=== PATIENT | male | born 1965 | race Caucasian/White ===

== ENCOUNTER 2018-12-10 10:00 | Day surgery (SDC) | payer OTHER ==
[2018-12-10] MEDS ORDERED: MIDAZOLAM 2 MG/2 ML VIAL IVP ONE (10:01)
[2018-12-10] MEDS ORDERED: fentaNYL 250 MCG/5 ML VIAL IVP ONE (10:01)
[2018-12-10] MEDS ORDERED: LACTATED RINGERS 1,000 ML IV ONE (10:34)
[2018-12-10 12:54] VITALS: BP 116/70
== END 2018-12-10 10:01 | disposition home or self-care (01) ==
LOC: SDS 10:00
PROVIDERS: ATTEND Internal Medicine Gastroenterology
PROC: 0DJD8ZZ Inspection of Lower Intestinal Tract, Via Natural or Artificial Opening Endoscopic (ICD-10-PCS; principal; 2018-12-10 11:30)
DX: Z12.11 Encounter for screening for malignant neoplasm of colon (principal); J30.9 Allergic rhinitis, unspecified; Z87.891 Personal history of nicotine dependence
CPT/HCPCS: 45378; J3010; J7120

== ENCOUNTER 2023-06-21 08:12 | Outpatient (CLI) | payer OTHER ==
[2023-06-21 12:05] LABS: BASOPHILS % (AUTO) 1.5 %; EOSINOPHILS # (AUTO) 0.2 10^3/uL (0.0-0.7); EOSINOPHILS % (AUTO) 6.8 %; HCT - HEMATOCRIT 45.2 % (42.0-52.0); HGB - HEMOGLOBIN 14.6 g/dL (14.0-18.0); LYMPHOCYTES # (AUTO) 1.2 10^3/uL (1.5-3.5); LYMPHOCYTES % (AUTO) 45.5 %; MEAN CORPUSCULAR HEMOGLOBIN 30.8 pg (27.0-31.0); MEAN CORPUSCULAR HGB CONC 32.3 g/dL (32.0-36.0); MEAN CORPUSCULAR VOLUME 95.4 fL (80.0-94.0); MEAN PLATELET VOLUME 11.6 fL (7.4-11.4); MONOCYTES # (AUTO) 0.3 10^3/uL (0.0-1.0); MONOCYTES % (AUTO) 11.7 %; NEUTROPHILS # (AUTO) 0.9 10^3/uL (1.5-6.6); NEUTROPHILS % (AUTO) 34.5 %; PLT - PLATELET COUNT 153 10^3/uL (130-450); RED BLOOD COUNT 4.74 10^6/uL (4.70-6.10); RED CELL DISTRIBUTION WIDTH 13.6 % (12.0-15.0); WHITE BLOOD COUNT 2.7 x10^3/uL (4.8-10.8)
[2023-06-21 12:08] LABS: SLIDE REVIEW? Indicated
[2023-06-21 12:09] LABS: RBC MORPHOLOGY (MULTIPLE) 1+ ANISOCYTOSIS (NORMAL)
[2023-06-21 12:23] LABS: ALBUMIN 4.5 g/dL (3.2-5.5); ALBUMIN/GLOBULIN RATIO 1.3 (1.0-2.2); ALKALINE PHOSPHATASE 33 IU/L (42-121); ALT ALANINE AMINOTRANSFERASE 30 IU/L (10-60); AST ASPARTATE AMINOTRANSFERASE 27 IU/L (10-42); BUN - BLOOD UREA NITROGEN 20 mg/dL (6-20); CALCIUM 9.6 mg/dL (8.5-10.3); CARBON DIOXIDE - CO2 25 mmol/L (21-32); CHLORIDE 105 mmol/L (101-111); CHOL/HDL RATIO 3.2 (<5.0); CHOLESTEROL 262 mg/dL; GFR - MDRD 77 (>89); GLUCOSE 101 mg/dL (74-104); HDL CHOLESTEROL 82 mg/dL; LDL CHOLESTEROL,CALCULATED 166 mg/dL; POTASSIUM 4.1 mmol/L (3.5-4.5); SODIUM 136 mmol/L (135-145); THYROID STIMULATING HORMONE 1.79 uIU/mL (0.34-5.60); TRIGLYCERIDES 69 mg/dL (48-352); VLDL CHOLESTEROL 14 mg/dL
== END 2023-06-21 08:13 | disposition home or self-care (01) ==
LOC: LAB.N 08:12
PROVIDERS: ATTEND Family Medicine
DX: Z00.00 Encounter for general adult medical examination without abnormal findings (principal); Z12.5 Encounter for screening for malignant neoplasm of prostate
CPT/HCPCS: 36415; 80053; 80061; 83721; 84153; 84443; 85025